=== PATIENT | male | born 1940 | race Caucasian/White ===

== ENCOUNTER 2017-02-16 12:24 | Emergency (ER) | payer MEDICARE, OTHER | END 2017-02-16 13:51 | disposition home or self-care (01) | DX: S80.812A Abrasion, left lower leg, initial encounter (principal); W22.09XA Striking against other stationary object, initial encounter; Y93.53 Activity, golf; Y92.39 Other specified sports and athletic area as the place of occurrence of the external cause; Z86.718 Personal history of other venous thrombosis and embolism; Z79.01 Long term (current) use of anticoagulants; Z87.891 Personal history of nicotine dependence; R03.0 Elevated blood-pressure reading, without diagnosis of hypertension ==

== ENCOUNTER 2017-12-06 08:47 | Emergency (ER) | payer MEDICARE, OTHER ==
--- NOTE | 2017-12-06 08:53 | ED Physician Documentation ---
PD HPI URI - Stated complaint Stated Complaint: FEVER/CHEMO PATIENT - History obtained from History obtained from: Patient - History of Present Illness Timing - onset: Today, Last night Timing duration: Hours Timing details: Abrupt onset, Still present Associated symptoms: Fever, Chills (today), Chest pain (fell and hurt left ribs 2 weeks ago with some soreness there still.). No: Sore throat, Dry cough, Dyspnea, Bilateral edema Contributing factors: No: Sick contact Worsened by: No: Activity Similar symptoms before: Has not had sx before Recently seen: [facility] ([facility] (2 days ago) with first chemo for Multiple Myeloma. He felt okay yesterday. Overnight and this morning with feeling of fever and chills. Had temp 101.2 at home by oral thermometer. No meds for it. Feeling better coming here. Talked with onc call Oncology and referred to ED for evaluation.) Review of Systems Constitutional: reports: Fever, Chills, Fatigue Nose: denies: Rhinorrhea / runny nose, Congestion, Sinus pressure / pain Throat: denies: Sore throat Cardiac: denies: Palpitations Respiratory: denies: Dyspnea, Cough GI: denies: Abdominal Pain, Nausea, Vomiting, Diarrhea Skin: denies: Rash, Lesions Musculoskeletal: denies: Back pain Neurologic: reports: Generalized weakness, Confused (mildly yesterday and today , thought side effect of chemo per patient/.). denies: Focal weakness, Numbness, Altered mental status, Headache Psychiatric: denies: Depressed Endocrine: denies: Weight loss Immunocompromised: reports: Immunocompromised, Chemotherapy PD PAST MEDICAL HISTORY - Past Medical History Cardiovascular: Deep vein thrombosis Respiratory: None Neuro: None Endocrine/Autoimmune: None GI: None - Past Surgical History Past Surgical History: Yes Ortho: Spine surgery HEENT: Tonsil/Adenoidectomy - Present Medications Home Medications: Ambulatory Orders Medication Instructions Recorded Confirmed Mirtazapine 15 mg PO HS 08/24/13 07/13/16 Pantoprazole Sodium [Protonix] 0 mg PO DAILY 07/13/16 07/13/16 Rivaroxaban [Xarelto] 0 mg PO DAILY 07/13/16 07/13/16 HYDROcod/ACETAM 5/325 [[place] 5/325] 1 - 2 ea PO Q6H PRN #10 tablet 02/16/17 Azithromycin [Zithromax] 250 mg PO DAILY #6 tablet 12/06/17 Dexamethasone [Decadron] 12/06/17 Lenalidomide [Revlimid] 12/06/17 Velcade 12/06/17 - Allergies Allergies/Adverse Reactions: Allergies Allergy/AdvReac Type Severity Reaction Status Date / Time No Known Drug Allergies Allergy Verified 08/24/13 18:53 - Social History Does the pt smoke?: Yes Smoking Status: Former smoker Does the pt drink ETOH?: Yes Does the pt have substance abuse?: No - Immunizations Immunizations are current?: No Immunizations: TDAP >10years/unknown - POLST Patient has POLST: No PD ED PE NORMAL - Vitals Vital signs reviewed: Yes - General General: Alert and oriented X 3, No acute distress, Well developed/nourished - HEENT HEENT: Atraumatic, Moist mucous membranes, Pharynx benign - Neck Neck: Supple, no meningeal sign, No adenopathy - Cardiac Cardiac: RRR, No murmur - Respiratory Respiratory: Clear bilaterally - Abdomen Abdomen: Soft, Non tender - Male Male : Deferred - Rectal Rectal: Deferred - Back Back: No CVA TTP - Derm Derm: Normal color, Warm and dry - Extremities Extremities: No tenderness to palpate, No edema, No calf tenderness / cord - Neuro Neuro: Alert and oriented X 3, No motor deficit, Normal speech - Psych Psych: Normal mood, Normal affect Results - Vitals Vitals: Vital Signs - 24 hr 12/06/17 12/06/17 12/06/17 08:51 12:03 12:16 Temperature 37.8 C H Heart Rate 83 75 Respiratory 17 16 Rate Blood Pressure 118/67 93/64 114/66 O2 Saturation 97 94 12/06/17 12:22 Temperature Heart Rate Respiratory Rate Blood Pressure 106/62 O2 Saturation Oxygen O2 Source Room air - Labs Labs: Laboratory Tests 12/06/17 12/06/17 12/06/17 09:34 09:40 10:26 WBC 2.6 L RBC 3.22 L Hgb 10.8 L Hct 31.3 L MCV 97.1 H MCH 33.5 H MCHC 34.5 RDW 15.7 H Plt Count 121 L MPV 6.9 L Neut # 2.0 Lymph # 0.4 L [place] # 0.1 Eos # 0.0 Baso # 0.0 Absolute Nucleated RBC 0.00 Nucleated RBC % 0.0 Manual Slide Review Indicated Platelet Estimate DECREASED (<130,000) Platelet Morphology NORMAL APPEARANCE RBC Morph Micro Appear 1+ OVALOCYTES Sodium Potassium Chloride Carbon Dioxide Anion Gap BUN Creatinine Estimated GFR (MDRD) Glucose Lactic Acid 1.0 Calcium Magnesium Total Bilirubin AST ALT Alkaline Phosphatase Total Protein Albumin Globulin Albumin/Globulin Ratio Lipase Influenza A (Rapid) Negative Influenza B (Rapid) Negative Influenza Types A,B Ag - 12/06/17 10:26 WBC RBC Hgb Hct MCV MCH MCHC RDW Plt Count MPV Neut # Lymph # [place] # Eos # Baso # Absolute Nucleated RBC Nucleated RBC % Manual Slide Review Platelet Estimate Platelet Morphology RBC Morph Micro Appear Sodium 137 Potassium 4.0 Chloride 99 L Carbon Dioxide 25 Anion Gap 13.0 BUN 18 Creatinine 1.0 Estimated GFR (MDRD) 73 L Glucose 95 Lactic Acid Calcium 9.3 Magnesium 1.6 L Total Bilirubin 0.4 AST 21 ALT 22 Alkaline Phosphatase 61 Total Protein 7.9 Albumin 3.6 Globulin 4.3 H Albumin/Globulin Ratio 0.8 L Lipase 13 L Influenza A (Rapid) Influenza B (Rapid) Influenza Types A,B Ag - Rads (name of study) chest Radiology: Prelim report reviewed, EMP read contemporaneously PD MEDICAL DECISION MAKING - ED course Complexity details: reviewed results (wbc is adequate and lactacte is good. he is looking better here. Mild infintrate right lower lung. he had had some injury a week ago and has some pain there with breathing, so consider atelectasis, though will cover for pneumonia in setting of fever and recent chemotherapy. 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 ) Departure - Departure Disposition: 01 Home, Self Care Clinical Impression: Status post chemotherapy Pneumonia Qualifiers: Pneumonia type: due to unspecified organism Laterality: right Lung location: middle lobe of lung Qualified Code(s): J18.1 - Lobar pneumonia, unspecified organism Fever Qualifiers: Fever type: unspecified Qualified Code(s): R50.9 - Fever, unspecified Condition: Stable Record reviewed to determine appropriate education?: Yes Instructions: ED Pneumonia Adult Follow-Up: Jason Chacon [Primary Care Provider] - Prescriptions: Azithromycin [Zithromax] 250 mg PO DAILY #6 tablet Comments: Your fever and general malaise may be related to the chemotherapy as an immune response or body response to it. However given the chemotherapy we would be concern for more serious infection. There is a small patch on x-ray on the right side that could represent an early pneumonia. This may also be just some mucus congestion or atelectasis related to the recent injury. We will treated as pneumonia in case. Your other markers such as lactate screening for sepsis are normal. Your white count is adequate and so you are not too low to be worrisome at this point. Her white count will likely go lower after the chemotherapy you just had 2 days ago. The low point is typically at about 5-7 days afterward. Follow-up with your oncologist as recommended. Give him a call Thursday to update how you are feeling. Tylenol if needed for fevers. Drink lots of fluids. Zithromax antibiotic as directed for the next 5 days. Continue other usual medications. Discharge Date/Time: 12/06/17 12:28
[2017-12-06 10:30] LABS: BASOPHILS % (AUTO) 0.9 %; EOSINOPHILS % (AUTO) 0.7 %; HGB - HEMOGLOBIN 10.8 g/dL (14.0-18.0); LYMPHOCYTES # (AUTO) 0.4 10^3/uL (1.5-3.5); LYMPHOCYTES % (AUTO) 16.1 %; MEAN CORPUSCULAR HEMOGLOBIN 33.5 pg (27.0-31.0); MEAN CORPUSCULAR HGB CONC 34.5 g/dL (32.0-36.0); MEAN CORPUSCULAR VOLUME 97.1 fL (80.0-94.0); MEAN PLATELET VOLUME 6.9 fL (7.4-11.4); MONOCYTES # (AUTO) 0.1 10^3/uL (0.0-1.0); MONOCYTES % (AUTO) 3.9 %; NEUTROPHILS % (AUTO) 78.4 %; PLT - PLATELET COUNT 121 10^3/uL (130-450); RED BLOOD COUNT 3.22 10^6/uL (4.70-6.10); RED CELL DISTRIBUTION WIDTH 15.7 % (12.0-15.0); WHITE BLOOD COUNT 2.6 x10^3/uL (4.8-10.8)
--- NOTE | 2017-12-06 10:39 | XRAY Report ---
EXAM: CHEST RADIOGRAPHY EXAM DATE: 12/06/2017 09:23 AM. CLINICAL HISTORY: Fever today, post recent chemo. COMPARISON: None. TECHNIQUE: 2 views. FINDINGS: Lungs/Pleura: Patchy opacity is seen in the right lower lobe. Otherwise, no focal pulmonary consolida tion. No pleural effusion or pneumothorax. Mediastinum: Heart and mediastinal contours are unremarkable. Other: None. IMPRESSION: Patchy opacity in the right lower lobe is concerning for developing infection. Follow-up chest radiog raph is recommended after treatment to ensure resolution. [facility] Referring Provider Line: [phone] SITE ID: [id number]
[2017-12-06 10:43] LABS: ALBUMIN 3.6 g/dL (3.2-5.5); ALBUMIN/GLOBULIN RATIO 0.8 (1.0-2.2); BILIRUBIN,TOTAL 0.4 mg/dL (0.2-1.0); CALCIUM 9.3 mg/dL (8.5-10.3); MAGNESIUM 1.6 mg/dL (1.7-2.8); TOTAL PROTEIN 7.9 g/dL (6.7-8.2)
[2017-12-06 10:47] LABS: PLATELET ESTIMATE, MANUAL DECREASED (<130,000) (NORMAL); PLATELET MORPHOLOGY NORMAL APPEARANCE (NORMAL)
[2017-12-06] MEDS ORDERED: AZITHROMYCIN 250 MG TABLET PO STA (11:08)
[2017-12-06] MEDS ORDERED: cefTRIAXone 1 GM in SODIUM CHLORIDE 0.9% MINIBAG 100 ML IV STA (11:08)
[2017-12-06 12:22] VITALS: BP 106/62
== END 2017-12-06 12:28 | disposition home or self-care (01) ==
LOC: ED 08:47
DX: J18.9 Pneumonia, unspecified organism (principal); Z79.899 Other long term (current) drug therapy; R50.9 Fever, unspecified
CPT/HCPCS: 36415; 71046; 80053; 83605; 83690; 83735; 85025; 87040; 87275; 87276; 96365; 99283; 99284; A9270

== ENCOUNTER 2017-12-12 04:36 | Outpatient (CLI) | payer MEDICARE, OTHER | END 2017-12-12 04:37 | disposition critical access hospital (66) | LOC: EMS 04:36 | PROVIDERS: ATTEND Surgery | DX: R50.9 Fever, unspecified (principal) | CPT/HCPCS: A0425; A0429 ==

== ENCOUNTER 2017-12-12 05:03 | Emergency (ER) | payer MEDICARE, OTHER ==
--- NOTE | 2017-12-12 05:58 | ED Physician Documentation ---
PD HPI FEVER - Stated complaint Stated Complaint: FEVER/WEAK - Chief complaint Chief Complaint: Fever - History obtained from History obtained from: Patient, Family - History of Present Illness Timing - onset: Enter time (03:30), Today Timing details: Abrupt onset Associated symptoms: Chills. No: Sweats, Dry cough, Productive cough, Abdominal pain, NVD, Urinary symptoms, Rash/skin lesion Similar symptoms before: No diagnosis (w/u last week revealed reassuring results (particularly lack of neutropenia) and no source of the fever. he has had normal temperatures (checked at least omce daily) since last seen, until this morning when he had shaking chills, found to have 101.6 temperature he is on chemo for multiple myeolma, first round was shortly before last ED presentation and second round was yesterday) Recently seen: Emergency Dept (6 days ago for same) Review of Systems Constitutional: reports: Fever, Chills. denies: Myalgias, Sweats Ears: denies: Ear pain Nose: reports: Reviewed and negative Throat: denies: Sore throat Cardiac: reports: Reviewed and negative Respiratory: reports: Reviewed and negative GI: reports: Reviewed and negative : denies: Dysuria, Frequency Skin: denies: Rash Neurologic: reports: Reviewed and negative PD PAST MEDICAL HISTORY - Past Medical History Past Medical History: Yes Cardiovascular: Deep vein thrombosis Respiratory: None Neuro: None Endocrine/Autoimmune: None GI: None Other Past Medical History: Multiple Myeloma - Past Surgical History Past Surgical History: Yes Ortho: Spine surgery HEENT: Tonsil/Adenoidectomy - Present Medications Home Medications: Ambulatory Orders Medication Instructions Recorded Confirmed Mirtazapine 15 mg PO HS 08/24/13 07/13/16 Pantoprazole Sodium [Protonix] 0 mg PO DAILY 07/13/16 07/13/16 Rivaroxaban [Xarelto] 0 mg PO DAILY 07/13/16 07/13/16 HYDROcod/ACETAM 5/325 [[place] 5/325] 1 - 2 ea PO Q6H PRN #10 tablet 02/16/17 Azithromycin [Zithromax] 250 mg PO DAILY #6 tablet 12/06/17 Dexamethasone [Decadron] 12/06/17 Lenalidomide [Revlimid] 12/06/17 Velcade 12/06/17 - Allergies Allergies/Adverse Reactions: Allergies Allergy/AdvReac Type Severity Reaction Status Date / Time No Known Drug Allergies Allergy Verified 12/12/17 05:14 - Social History Does the pt smoke?: No Smoking Status: Former smoker Does the pt drink ETOH?: Yes ETOH Use: Beer Does the pt have substance abuse?: No - Immunizations Immunizations are current?: No Immunizations: TDAP >10years/unknown - POLST Patient has POLST: No PD ED PE NORMAL - Vitals Vital signs reviewed: Yes - General General: Well developed/nourished - HEENT HEENT: Moist mucous membranes - Neck Neck: Supple, no meningeal sign - Cardiac Cardiac: RRR, No murmur, No gallop, No rub - Respiratory Respiratory: No respiratory distress, Clear bilaterally - Abdomen Abdomen: Soft, Non tender - Back Back: No CVA TTP - Derm Derm: Normal color, Warm and dry, No rash - Neuro Neuro: Alert and oriented X 3 Results - Vitals Vitals: Oxygen O2 Source Room air - Labs Labs: Microbiology 12/12/17 05:25 Blood Culture - Preliminary Blood NO GROWTH AFTER 2 DAYS Laboratory Tests 12/12/17 12/12/17 12/12/17 05:25 05:25 06:52 WBC 2.2 L RBC 3.04 L Hgb 9.9 L Hct 29.4 L MCV 96.8 H MCH 32.7 H MCHC 33.8 RDW 15.6 H Plt Count 69 L MPV 8.5 Neut # Not Reportable Lymph # Not Reportable [place] # Not Reportable Eos # Not Reportable Baso # Not Reportable Absolute Nucleated RBC Not Reportable Total Counted 100 Band Neuts % (Manual) 13 H Abnorm Lymph % (Manual) 0 Nucleated RBC % Not Reportable Neutrophils # (Manual) 2.0 Lymphocytes # (Manual) 0.2 L Monocytes # (Manual) 0.0 Eosinophils # (Manual) 0.0 Basophils # (Manual) 0.0 Differential Comment MANUAL DIFFERENTIAL Platelet Estimate DECREASED (<130,000) RBC Morph Micro Appear NORMAL APPEARANCE Sodium 137 Potassium 3.8 Chloride 102 Carbon Dioxide 23 Anion Gap 12.0 BUN 22 H Creatinine 1.0 Estimated GFR (MDRD) 73 L Glucose 109 H Lactic Acid 1.4 Calcium 9.2 PD MEDICAL DECISION MAKING - ED course Complexity details: reviewed old records, reviewed results, re-evaluated patient , considered differential, d/w patient, d/w family ED course: says that prior to chemo yesterday, there was concern expressed by staff that patients WBC might be too low to give the chemo but it was given. I discussed tonights HPI and test results with Dr. Alejandre (stream control officer oncologist at [facility]). ANC is not low enough to cause concern (not neutropenic) . It was 0.8 (800) yesterday but is 2 (2,000) tonight. Dr. Alejandre surmises this may be due to the decadron he received. he also says that the concern over his low white count precluding chemo was likely amongst staff preparing to administer the chemo, and that when they contacted the on-call oncologist, they were (appropriately) told they can proceed with the chemo (Dr. Alejandre says that patients chemo regimen would be given even in setting kf neutropenia). Dr. Alejandre surmises that patient might be having a febrile reaction to the chemo (both fever spikes were shortly after receiving chemo), and this would not be a concerning or dangerous reaction. at this time, there are no elements of HPI nor test results to suggest an infectious source of the fever. no respiratory c/o, and rhus CXR not repeated from previous visit, and no urinary symptoms thus UA not obtained. patient is on levaquin and instructed to continue taking it Departure - Departure Disposition: 01 Home, Self Care Clinical Impression: Status post chemotherapy Fever Qualifiers: Fever type: unspecified Qualified Code(s): R50.9 - Fever, unspecified Condition: Good Instructions: ED Fever Unconf Cause Follow-Up: Jason Chacon [Primary Care Provider] - Comments: Your blood tests today, while low (white blood cell count, red blood cell count , and platelets), are not unusual given your diagnosis of multiple myeloma and the chemotherapy. More importantly, the numbers are not low enough to need further testing or treatment at this time. Continue the antibiotic (levofloxacin ) as prescribed. If you still have a fever tomorrow morning (12/13/17) of 100.4 or higher, call the oncologist (Dr. Alejandre is the on-duty oncologist for Dr. Guajardo this weekend) to discuss recommendations. If you cannot get in touch with the oncologist, or you feel worse at any time, you should return to the emergency department for reevaluation. Discharge Date/Time: 12/12/17 09:43
[2017-12-12 06:45] LABS: BASOPHILS % (AUTO) 0.1 %; HGB - HEMOGLOBIN 9.9 g/dL (14.0-18.0); LYMPHOCYTES % (AUTO) 7.1 %; MEAN CORPUSCULAR HEMOGLOBIN 32.7 pg (27.0-31.0); MEAN CORPUSCULAR HGB CONC 33.8 g/dL (32.0-36.0); MEAN CORPUSCULAR VOLUME 96.8 fL (80.0-94.0); MEAN PLATELET VOLUME 8.5 fL (7.4-11.4); MONOCYTES % (AUTO) 1.4 %; NEUTROPHILS % (AUTO) 91.4 %; PLT - PLATELET COUNT 69 10^3/uL (130-450); RED BLOOD COUNT 3.04 10^6/uL (4.70-6.10); RED CELL DISTRIBUTION WIDTH 15.6 % (12.0-15.0); WHITE BLOOD COUNT 2.2 x10^3/uL (4.8-10.8)
[2017-12-12 06:50] LABS: ABNORMAL LYMPHS % (MANUAL) 0 %; CALCIUM 9.2 mg/dL (8.5-10.3)
[2017-12-12 07:12] LABS: BAND NEUTROPHILS % (MANUAL) 13 %; DIFFERENTIAL COMMENT MANUAL DIFFERENTIAL; LYMPHOCYTES # (MANUAL) 0.2 10^3/uL (1.5-3.5); LYMPHOCYTES % (MANUAL) 9 %; NEUTROPHILS % (MANUAL) 77 %; PLATELET ESTIMATE, MANUAL DECREASED (<130,000) (NORMAL); RBC MORPHOLOGY (MULTIPLE) NORMAL APPEARANCE (NORMAL)
[2017-12-12 09:53] VITALS: BP 104/60
== END 2017-12-12 09:43 | disposition home or self-care (01) ==
LOC: EDUNIT# → SUPCPDRO 05:03 → ED 05:03
DX: R50.9 Fever, unspecified (principal); C90.00 Multiple myeloma not having achieved remission; Z79.899 Other long term (current) drug therapy; D72.819 Decreased white blood cell count, unspecified; Z86.718 Personal history of other venous thrombosis and embolism; Z79.01 Long term (current) use of anticoagulants; Z87.891 Personal history of nicotine dependence
CPT/HCPCS: 36415; 80048; 83605; 85025; 87040; 99283; 99284